=== PATIENT | female | born 1960 | race Caucasian/White ===

== ENCOUNTER 2019-06-11 09:30 | Emergency (ER) | payer MEDICAID ==
[~2019-06-11] VITALS: Ht 175.3 cm; Wt 50.9 kg
[2019-06-11 09:37] VITALS: BP 145/106
--- NOTE | 2019-06-11 09:51 | NUR ---
Pt in with C/O of cough x 4 months. pts roommate requested pt to come in to the ER and get checked out. pt has states that she is worried she has "a staph infection" on her left lower arm. pt states she perviously believed they wounds where spider bites. pt states she had just [place]" and that's when all her problems started.
--- NOTE | 2019-06-11 10:02 | NUR ---
pt removed dressing on her bilateral arms and stated she also has wounds on her legs and right small toe on her foot. pt instructed to change into a hospital gown and remove pants.
--- NOTE | 2019-06-11 10:07 | NUR ---
pt states she is supose to take depakote 500mg TID and a blood pressure med but has not taken any medications for about 2 years. Except for "Ibuprofen likes its candy at night"
--- NOTE | 2019-06-11 10:10 | NUR ---
Provider in to see pt.
[2019-06-11 10:56] LABS: BASOPHILS # (AUTO) 0.03 x10^3/uL (0-0.1); BASOPHILS % (AUTO) 0 % (0-1); EOSINOPHILS # (AUTO) 0.29 x10^3/uL (0-0.4); EOSINOPHILS % (AUTO) 3 % (1-7); LYMPHOCYTES # (AUTO) 1.54 x10^3/uL (1-3.4); LYMPHOCYTES % (AUTO) 15 % (22-44); MD NO; MEAN CORPUSCULAR HEMOGLOBIN 28.2 pg (27.0-34.8); MEAN CORPUSCULAR VOLUME 85.5 fL (80-100); MEAN PLATELET VOLUME 7.9 fL (7.4-10.4); MONOCYTES % (AUTO) 11 % (2-9); NEUTROPHILS # (AUTO) 7.53 x10^3/uL (1.8-6.8); NEUTROPHILS % (AUTO) 71 % (42-75); PLATELET COUNT 399 x10^3/uL (130-400); RED BLOOD COUNT 4.85 x10^6/uL (3.82-5.3); RED CELL DISTRIBUTION WIDTH 14.4 % (9.6-15.2)
[2019-06-11] MEDS ORDERED: SODIUM CHLORIDE 0.9% 1,000ML IVBOLUS ONE (11:00)
[2019-06-11] MEDS ORDERED: FAMOTIDINE 20 MG/2 ML IV ONE (11:00)
[2019-06-11 11:07] LABS: ALBUMIN 3.4 g/dL (3.4-5.0); ANION GAP 7 mmol/L (5-15); CALCIUM 9.1 mg/dL (8.5-10.1); CHLORIDE 107 mmol/L (98-107)
[2019-06-11 11:32] LABS: MICROSCOPIC AUTO
[2019-06-11] MEDS ORDERED: NEOSPORIN OINT. PKT 1 PACKET ONE (11:40)
--- NOTE | 2019-06-11 11:49 | NUR ---
Patient given discharge instructions and they have confirmed that they understand the instructions. pt stated that she will fill her scipt but unsure if she will take the tyenol as ordered. pt wounds dressed by critical systems technician. Patient ambulatory with steady gait. Left the ED in no distress.
== END 2019-06-11 11:52 | disposition home or self-care (01) ==
LOC: ED 10:07
DX: L03.114 Cellulitis of left upper limb (principal); L03.113 Cellulitis of right upper limb; L03.031 Cellulitis of right toe; F17.200 Nicotine dependence, unspecified, uncomplicated; R94.31 Abnormal electrocardiogram [ECG] [EKG]
CPT/HCPCS: 36415; 71045; 80048; 81001; 82040; 85025; 93005; 99285